=== PATIENT | female | born 1945 | race Caucasian/White ===

== ENCOUNTER 2019-09-09 04:45 | Inpatient (IN) ==
--- NOTE | 2019-08-28 09:18 | EKG Report ---
Test Performed on : 08/28/2019 09:01:31 AM Test Reason : PAT Blood Pressure : / mmHG Vent. Rate : 063 BPM Atrial Rate : 063 BPM P-R Int : 140 ms QRS Dur : 076 ms QT Int : 434 ms P-R-T Axes : 079 011 065 degrees QTc Int : 444 ms Normal sinus rhythm. Normal ECG No previous ECGs available Confirmed by Eliu KINGSTON, Estevan ([id number]) on 08/29/2019 8:30:33 AM
[2019-08-28 09:26] LABS: URINE SOURCE CLEAN CATCH
[2019-08-28 09:40] LABS: BASO# 0.02 X1000 (0.0-0.2); BASO% 0.3 % (0.0-0.8); EOS# 0.15 X1000 (0.0-0.7); EOS% 2.4 % (0.0-10.0); HEMATOCRIT 41.8 % (37.0-47.0); HEMOGLOBIN 13.3 g/dL (12.0-16.0); LYMPH# 1.89 X1000 (1.2-3.4); LYMPH% 29.6 % (20.5-51.1); MCH 29.8 PG (27-31); MCHC 31.8 g/dL (33-37); MCV 93.7 FL (81-99); MONO# 0.51 X1000 (0.11-0.59); MPV 9.6 FL (7.4-10.4); NEUT# 3.81 X1000 (1.4-6.5); NEUT% 59.7 % (42.2-75.2); PLT 196 X1000 (130-400); RBC 4.46 XMIL (4.2-5.4); RDW 12.8 % (11.5-14.5); WBC 6.38 X1000 (4.8-10.8)
[2019-08-28 09:46] LABS: INR 0.97
[2019-08-28 09:47] LABS: PTT 24.9 Seconds (22.3-41.8)
[2019-08-28 09:50] LABS: BILIRUBIN URINE NEGATIVE (NEGATIVE); BLOOD URINE TRACE (NEGATIVE); COLOR YELLOW; GLUCOSE URINE NEGATIVE (NEGATIVE); KETONE URINE NEGATIVE (NEGATIVE); NITRITE URINE NEGATIVE (NEGATIVE); PROTEIN URINE NEGATIVE (NEGATIVE); SP GRAVITY URINE 1.011; TURBIDITY URINE CLEAR (CLEAR); UROBILINOGEN URINE NORMAL (NORMAL)
[2019-08-28 09:59] LABS: HEMOGLOBIN A1C 5.6 % (4.8-6.0)
[2019-08-28 10:02] LABS: AGAP 11; ALBUMIN 4.5 g/dL (3.5-5.0); BUN 14 mg/dL (8-22); CALCIUM 9.2 mg/dL (8.8-10.2); CHLORIDE 103 mmol/L (98-107); COSMO 281; CREATININE 0.8 mg/dL (0.5-0.9); ESTIMATED GFR > 60; GLUCOSE 94 mg/dL (70-104); LEUKOCYTES URINE SMALL (NEGATIVE); SODIUM 141 mmol/L (136-145); TCO2 27 mmol/L (25-35); UR EPITHELIAL CELLS <10 /HPF (<10); URINE BACTERIA NEGATIVE /HPF; URINE RBC <10 /HPF (<10); URINE WBC <10 /HPF (<10)
[2019-09-09] MEDS ORDERED: PEPCID ONE (11:49)
[2019-09-09] MEDS ORDERED: COLACE ONE (11:49)
[2019-09-09] MEDS ORDERED: REGLAN ONE (11:49)
[2019-09-09] MEDS ORDERED: LR 1,000 ML ONE (11:50)
[2019-09-09] MEDS ORDERED: CELEBREX ONE (11:50)
[2019-09-09] MEDS ORDERED: KEFZOL 1 GM/D5W 1 GM/50 ML IVPB ONE (11:50)
[2019-09-09] MEDS ORDERED: LYRICA ONE (11:51)
[2019-09-09] MEDS ORDERED: DIPRIVAN 1% ONE ×2 (12:32→15:05)
[2019-09-09] MEDS ORDERED: XYLOCAINE-MPF 2% ONE ×2 (12:33→15:06)
[2019-09-09] MEDS ORDERED: DURAMORPH ONE (13:19)
[2019-09-09] MEDS ORDERED: TORADOL ONE (13:19)
[2019-09-09] MEDS ORDERED: MARCAINE 0.25% PF ONE (13:19)
[2019-09-09] MEDS ORDERED: SODIUM CHLORIDE 0.9% ONE (13:20)
[2019-09-09] MEDS ORDERED: CYKLOKAPRON 1,000 MG/NS 1,000 MG/100 ML IVPB ONE (13:20)
[2019-09-09] MEDS ORDERED: EXPAREL 1.3% ONE ×2 (13:20→13:21)
[2019-09-09] MEDS ORDERED: NEOSPORIN G.U. IRRIGANT ONE (13:21)
[2019-09-09] MEDS ORDERED: FENTANYL ONE (13:43)
[2019-09-09] MEDS ORDERED: ZOFRAN ONE (15:27)
[2019-09-09] MEDS ORDERED: DECADRON ONE (15:27)
[2019-09-09 15:51] LABS: URINE SOURCE CATH
[2019-09-09] MEDS ORDERED: PHENERGAN ONE (16:47)
[2019-09-09] MEDS ORDERED: NS 1,000 ML ONE (17:37)
[2019-09-09] MEDS ORDERED: MILK OF MAGNESIA PO PRN (17:50)
[2019-09-09] MEDS ORDERED: OXY IR PO PRN ×2 (18:00)
[2019-09-09] MEDS ORDERED: ZOFRAN ODT PO PRN (18:00)
[2019-09-09] MEDS ORDERED: NS 1,000 ML IV SCH (18:00)
[2019-09-09] MEDS ORDERED: ZOFRAN IV PRN (18:00)
[2019-09-09] MEDS ORDERED: MORPHINE IV PRN ×3 (18:30)
[2019-09-09] MEDS: ULTRAM PO SCH (18:59)
[2019-09-09] MEDS: TYLENOL PO SCH (18:59)
[2019-09-09 19:05] LABS: BILIRUBIN URINE NEGATIVE (NEGATIVE); BLOOD URINE NEGATIVE (NEGATIVE); COLOR ORANGE; GLUCOSE URINE NEGATIVE (NEGATIVE); KETONE URINE NEGATIVE (NEGATIVE); LEUKOCYTES URINE NEGATIVE (NEGATIVE); NITRITE URINE NEGATIVE (NEGATIVE); PH URINE 5.5; PROTEIN URINE NEGATIVE (NEGATIVE); TURBIDITY URINE TURBID (CLEAR); UR EPITHELIAL CELLS <10 /HPF (<10); URINE BACTERIA NEGATIVE /HPF; URINE RBC <10 /HPF (<10); URINE WBC <10 /HPF (<10); UROBILINOGEN URINE NORMAL (NORMAL)
[2019-09-09] MEDS ORDERED: CYKLOKAPRON 1,000 MG in NS 100 ML IV ONE (20:20)
[2019-09-09] MEDS ORDERED: WELCHOL PO SCH (21:00)
[2019-09-09] MEDS ORDERED: ZEBETA PO SCH (21:00)
[2019-09-09] MEDS ORDERED: VITAMIN B-12 PO SCH (21:00)
[2019-09-09] MEDS ORDERED: PRAVACHOL PO SCH (21:00)
--- NOTE | 2019-09-09 21:44 | OPERATIVE NOTE ---
PROCEDURE DATE: 09/09/2019 PREOPERATIVE DIAGNOSIS: Right hip degenerative joint disease. POSTOPERATIVE DIAGNOSIS: Right hip degenerative joint disease. PROCEDURE: Right anterior total hip arthroplasty using [facility] size 5 standard offset stem with a -4 neck length, 36 mm head, a 52 mm hemispherical shell with two 6.5 cancellous screws of 35 mm and 20 mm and a 36 mm inside diameter acetabular liner. ANESTHESIA: Spinal. SURGEON: Peter Fam MD. CLARIFIER OPERATOR HELPER: RIRI Poole. She was present throughout the case. Her assistance was critical for decision making and for successful completion of case. BLOOD LOSS: Minimal. DESCRIPTION OF PROCEDURE: Patient was brought to the operative suite and placed in the supine position. After successful administration of spinal anesthesia, patient was placed on the OSI table in the usual position for right hip. The right hip was then prepped and draped in usual sterile fashion. A longitudinal incision was made beginning 3 cm distal and 3 cm lateral to the anterior superior iliac spine, extending distally and slightly laterally 8 cm, dissected sharply through skin and subcutaneous tissue down to the tensor fascia. The tensor fascia was incised and dissected bluntly down to deep tensor fascia. Deep tensor fascia was incised and circumflex vessels were electrocauterized, exposing the anterior capsule. T capsulotomy was performed exposing the anterior neck. The anterior neck cut was made with oscillating saw. The femoral head was removed with a power corkscrew. The labrum was resected. There was an osteophyte anteriorly that was resected. The acetabulum was then serially reamed to 52 mm. The 52 mm cup was then driven in place in the proper amount of inclination and anteversion and two 6.5 cancellous screws were placed 35 mm superiorly and 20 mm posterior superiorly and then the 52 mm acetabular liner was then locked into place. Attention was then directed to the femur. It was externally rotated, extended, adducted, and elevated out of the wound with the hook on the OSI bed. The lateral neck was rongeured. The canal was serially broached to a size 5. A size 5 standard offset -4 neck length was trialed and found to be excellent. Leg length fit and filled the stem and offset. The trial was then removed. The definitive stem was seated onto the femur and then the ceramic head -4 neck length was seated onto the Guillermo taper and the hip was again reduced. It was again found to be in excellent position. The hip was copiously infiltrated with Exparel, including the posterior capsule, anterior capsule, anterior musculature, and subcutaneous tissue. The anterior capsule was repaired with 0 V-Loc. The hip was copiously irrigated with normal saline containing irrigant and Vashe irrigation and then the tensor fascia was closed with 0 V-Loc. Skin edge approximated with 2-0 Vicryl. Skin was closed with 4-0 Monocryl and Prineo dressing. The patient tolerated the procedure well without complications. At the end of the procedure all counts were correct x2. The patient was transferred to the recovery room in stable condition. cc: Peter Fam MD
[2019-09-09] MEDS: KEFZOL 1 GM/D5W 1 GM/50 ML IVPB IV SCH (23:02)
[2019-09-10] MEDS: CALTRATE 600 + D PO SCH ×2 (00:01→09:57)
[2019-09-10] MEDS: COLACE PO SCH ×2 (00:02→09:58)
[2019-09-10] MEDS: ULTRAM PO SCH ×2 (00:32→06:04)
[2019-09-10] MEDS: LYRICA PO SCH ×2 (01:36→09:57)
[2019-09-10] MEDS: TYLENOL PO SCH ×2 (01:37→06:06)
[2019-09-10] MEDS: PERIDEX MT SCH ×2 (01:37→09:58)
[2019-09-10] MEDS ORDERED: XARELTO PO SCH (06:00)
[2019-09-10] MEDS: KEFZOL 1 GM/D5W 1 GM/50 ML IVPB IV SCH (06:05)
[2019-09-10] MEDS ORDERED: SYNTHROID PO SCH (07:00)
[2019-09-10 07:23] LABS: AGAP 13; BUN 13 mg/dL (8-22); CHLORIDE 105 mmol/L (98-107); COSMO 283; CREATININE 0.6 mg/dL (0.5-0.9); ESTIMATED GFR > 60; GLUCOSE 124 mg/dL (70-104); POTASSIUM 4.1 mmol/L (3.5-5.1); SODIUM 141 mmol/L (136-145); TCO2 23 mmol/L (25-35)
[2019-09-10] MEDS ORDERED: SALINE LOCK IV FLUID XX ONE (07:44)
[2019-09-10] MEDS ORDERED: ZYRTEC PO SCH (09:00)
[2019-09-10] MEDS ORDERED: PEPCID PO SCH (09:00)
[2019-09-10] MEDS ORDERED: CARDIZEM CD PO SCH (09:00)
[2019-09-10] MEDS ORDERED: DECADRON IV ONE (09:00)
[2019-09-10] MEDS ORDERED: WELCHOL PO SCH (12:00)
[2019-09-10 12:09] VITALS: BP 175/82
[2019-09-10] MEDS ORDERED: ZEBETA PO SCH (17:00)
[2019-09-10] MEDS ORDERED: VITAMIN B-12 PO SCH (21:00)
--- NOTE | 2019-09-11 10:35 | DISCHARGE SUMMARY ---
ADMISSION DATE: 09/09/2019 DISCHARGE DATE: 09/10/2019 DISCHARGE DIAGNOSIS: Right hip degenerative joint disease status post right anterior total hip arthroplasty. DISCHARGE MEDICATIONS: See discharge medication list. DISPOSITION: The patient discharged home with home health physical therapy. Instructed to return for any signs or symptoms of infection or deep venous thrombosis. Instructed to return to see Dr. Fam next . HOSPITAL COURSE: On the day of admission, patient underwent a right anterior total hip arthroplasty. Her postoperative course was unremarkable. At discharge she is afebrile tolerating a regular diet, ambulating well with physical therapy. Her wound is clean, dry, intact without sign of infection. She is discharged home in stable condition with instructions to follow up as described above. cc: Peter Fam MD
== END 2019-09-10 14:27 | disposition home or self-care (01) | DRG 470 ==
LOC: SURHOLD 04:45 → 4N 13:59
PROVIDERS: ADMIT Orthopaedic Surgery; ATTEND Orthopaedic Surgery

== ENCOUNTER 2019-10-29 20:22 | Observation (INO) ==
[2019-10-29] MEDS ORDERED: ANTIVERT PO ONE (21:04)
[2019-10-29] MEDS ORDERED: ZOFRAN IV ONE (21:06)
[2019-10-29 21:12] LABS: BASO# 0.02 X1000 (0.0-0.2); BASO% 0.2 % (0.0-0.8); EOS# 0.03 X1000 (0.0-0.7); EOS% 0.3 % (0.0-10.0); HEMATOCRIT 37.8 % (37.0-47.0); HEMOGLOBIN 12.2 g/dL (12.0-16.0); IMM GRAN# 0.06 X1000 (0.0-0.04); IMM GRAN% 0.6 % (0.0-0.5); LYMPH# 0.96 X1000 (1.2-3.4); LYMPH% 9.8 % (20.5-51.1); MCH 29.1 PG (27-31); MCHC 32.3 g/dL (33-37); MCV 90.2 FL (81-99); MONO# 0.41 X1000 (0.11-0.59); MONO% 4.2 % (1.7-9.3); MPV 9.8 FL (7.4-10.4); NEUT# 8.36 X1000 (1.4-6.5); NEUT% 84.9 % (42.2-75.2); PLT 196 X1000 (130-400); RBC 4.19 XMIL (4.2-5.4); RDW 12.8 % (11.5-14.5); WBC 9.84 X1000 (4.8-10.8)
[2019-10-29 21:20] LABS: URINE SOURCE CLEAN CATCH
[2019-10-29 21:23] LABS: BILIRUBIN URINE NEGATIVE (NEGATIVE); BLOOD URINE NEGATIVE (NEGATIVE); COLOR YELLOW; GLUCOSE URINE NEGATIVE (NEGATIVE); KETONE URINE 40 mg/dL (NEGATIVE); LEUKOCYTES URINE NEGATIVE (NEGATIVE); NITRITE URINE NEGATIVE (NEGATIVE); PROTEIN URINE NEGATIVE (NEGATIVE); SP GRAVITY URINE 1.011; TURBIDITY URINE HAZY (CLEAR); UROBILINOGEN URINE NORMAL (NORMAL)
[2019-10-29 21:25] LABS: UR EPITHELIAL CELLS <10 /HPF (<10); URINE BACTERIA NEGATIVE /HPF; URINE RBC <10 /HPF (<10); URINE WBC <10 /HPF (<10)
[2019-10-29 21:34] LABS: AGAP 14; ALB/GLOB RATIO 1.4; ALBUMIN 3.7 g/dL (3.5-5.0); ALKALINE PHOSPHATASE 105 U/L (32-104); BUN 11 mg/dL (8-22); CALCIUM 9.2 mg/dL (8.8-10.2); CHLORIDE 104 mmol/L (98-107); COSMO 283; CREATININE 0.7 mg/dL (0.5-0.9); ESTIMATED GFR > 60; GLUCOSE 177 mg/dL (70-104); GOT 19 U/L (10-30); GPT 12 U/L (10-36); POTASSIUM 3.9 mmol/L (3.5-5.1); SODIUM 140 mmol/L (136-145); TCO2 22 mmol/L (25-35); TOTAL BILIRUBIN 0.33 mg/dL (0.20-1.00); TOTAL PROTEIN 6.4 g/dL (6.3-8.3)
--- NOTE | 2019-10-29 21:38 | Diag Imaging Result Doc PS360 ---
EXAM: CT HEAD W/O CONTRAST HISTORY: dizziness TECHNIQUE: CT head without intravenous contrast COMPARISON: None. FINDINGS: No parenchymal hemorrhage. No epidural or subdural hematoma. No subarachnoid hemorrhage. There are mild microvascular ischemic changes. No mass identified on this noncontrasted exam. No hydrocephalus. The left sphenoid sinus is nearly completely opacified. IMPRESSION: 1.No hemorrhage 2.Mild chronic microvascular ischemic changes 3.Left sphenoid sinusitis This exam was performed using automated exposure control, adjustment of mA or kV according to patient size, and/or use of iterative reconstruction technique. Electronically signed by Rigoberto Stevens 10/29/2019 9:35 PM
--- NOTE | 2019-10-30 00:42 | PROVIDER DOCUMENTATION ---
This chart was entered by Barbie Pimentel Scribe, acting as scribe for Hans Rodarte MD. HPI-Abdominal Pain/GI Problem - General Chief Complaint: Nausea/Vomiting Stated Complaint: nausea/vomiting Time Seen by Provider: 10/29/19 20:53 Source: patient, family Allergies/Adverse Reactions: Patient Allergies Allergy/AdvReac Type Severity Reaction Status Date / Time Iodinated Contrast Media Allergy SWELLING Verified 10/30/19 06:30 Sulfa (Sulfonamide AdvReac RASH Verified 08/27/19 11:17 Antibiotics) Home Medications: Home Medication List Medication Instructions Recorded Confirmed Last Taken Type Colesevelam [Welchol] 625 mg PO DAILY 08/16/14 10/29/19 09/08/19 21:00 History Diltiazem HCl [Cartia Xt] 360 mg PO DAILY 08/16/14 10/29/19 09/08/19 06:00 History Levothyroxine [Synthroid] 75 mcg PO DAILY 08/16/14 10/29/19 09/08/19 04:00 History Pravastatin Sodium 80 mg PO QHS 01/01/16 10/29/19 09/08/19 21:00 History Bisoprolol [Zebeta] 5 mg PO QPM 08/27/19 10/29/19 09/08/19 17:00 History Calcium/D3/Mag Ox/[employer] Supervisor/Christian/Zn 2 dose PO ACS 08/27/19 10/30/19 09/08/19 21:00 History [Caltrate+D3 Plus Mineral Minis] Cetirizine HCl [Zyrtec] 10 mg PO DAILY 08/27/19 10/29/19 09/08/19 09:00 History Cyanocobalamin (Vitamin B-12) 1,000 mcg PO DAILY 08/27/19 10/29/19 09/08/19 21:00 History [B-12] Calcium Carbonate/Vit D3 [Caltrate 1 ea PO HS 10/30/19 10/30/19 Unknown History 600 + D] Ergocalciferol (Vitamin D2) 50,000 units PO DIRECTED 10/30/19 10/30/19 Unknown History [Vitamin D] - History of Present Illness-ABD Nature of Presenting Problems: pt is a 74 yr old female presenting with 1 day complaint of nausea, vomiting diarrhea and epigastric chest pain, pt reports vomited x 3 today, diarrhea x 1. pt reports she took Metamucil to improve diarrhea without relief, pt denies any other prearrival tx. pt also admits weakness/severe dizziness. Abdominal Pain Onset Location: reports: epigastric Pain Radiation: reports: no radiation Quality of Pain: reports: aching Severity in ED: reports: moderate Onset/Duration: reports: this afternoon Timing: reports: still present Activities at Onset: reports: light activity Exposure to sick contacts?: No Modifying Factors: improves with: other medication (metamucil without relief) Associated Symptoms: reports: diarrhea, dizziness, fatigue, nausea, vomiting, other (Pt notes some blurred vision for several days with dizziness). denies: chest pain, fever/chills, genitourinary problems, shortness of breath Last BM: this evening Dark Stools Present?: reports: none noticed Rectal Bleeding: reports: none # of Diarrhea Episodes: 1 Rectal Pain: reports: none # of Vomiting Episodes: 3 Emesis Description: reports: clear Bruising or Bleeding Gums?: No Similar Symptoms Previously?: No Recently seen or treated by another doctor?: No Review of Systems - Adult - REVIEW OF SYSTEMS - ADULT Constitutional: reports: fatique. denies: chills, fever Eyes: reports: no symptoms reported Ears, Nose, Mouth & Throat: reports: no symptoms reported Cardiovascular: reports: chest pain (epigastric), palpitations. denies: syncope Respiratory: denies: cough, dyspnea on exertion, wheezing Gastrointestinal: reports: abdominal pain, diarrhea, nausea, vomiting Genitourinary: denies: dysuria, frequency Musculoskeletal: reports: no symptoms reported Integumentary: reports: no symptoms reported Neurological: reports: dizziness/vertigo. denies: headache/migraines, syncope Psychiatric: reports: no symptoms reported Endocrine: reports: no symptoms reported Hematologic/Lymphatic: reports: no symptoms reported Allergic/Immunologic: reports: no symptoms reported All Other Systems: Reviewed and Negative Past History - Adult - PAST MEDICAL HISTORY-ADULT Review of Records: reports: Old Records Reviewed, Nursing Assessment Review, Medications Reviewed, Social history reviewed & non-contributory. Major Childhood Illnesses: reports: denies history Cardiovascular: reports: HTN, heart valve problem (MVP) Respiratory: reports: denies history Gastrointestinal: reports: other (chronic diarrhea) Obstetrical/Gynecological: reports: denies history Genitourinary: reports: denies history Musculoskeletal: reports: intervertebral disc disease (neck and lower back) Neurological: reports: denies history Endocrine/Immune: reports: thyroid disorder Other Conditions: reports: denies history - PRIOR SURGERIES/PROCEDURES Surgical/Procedure History: reports: cholecystectomy, hysterectomy, tonsillectomy, back/neck (lumbar) - IMMUNIZATION STATUS Childhood Immunizations: See Nurse Assessment Flu Vaccine: See Nurse Assessment - FAMILY HISTORY Family History: reviewed, not pertinent - SOCIAL HISTORY Smoking: non-smoker Substance Use: denies Living Situation: family Physical Exam-General - PHYSICAL EXAM-ADULT Initial Vital Signs Reviewed: Yes - CONSTITUTIONAL General Appearance: appears well, alert, mild distress - EYES Eyes: PERRL/EOMI - HEAD, EARS, NOSE, MOUTH & THROAT HENMT: normocephalic/atraumatic, moist mucous membranes, normal ENT inspection - NECK Neck: non-tender, full range of motion, supple, normal inspection - RESPIRATORY Respiratory: chest non-tender, lungs clear, normal breath sounds, no pleuratic chest pain, no respiratory distress, no accessory muscle use - CARDIOVASCULAR Cardiovascular: normal peripheral pulses, regular rate, rhythm, no edema, no gallop, no JVD - GASTROINTESTINAL (ABDOMEN) Abdominal Exam: normal bowel sounds, soft, tenderness (minimal epigastric tenderness) - LYMPHATIC Lymphatic: no adenopathy - MUSCULOSKELETAL Back Exam: normal inspection, no CVA tenderness, no vertebral tenderness Extremity: normal range of motion, non-tender, normal gait, normal inspection - SKIN Integumentary: normal color, normal turgor, warm/dry - NEUROLOGIC Neurologic: grossly normal, no motor/sensory deficits - PSYCHIATRIC Psych/Mental Status: normal mood/affect, normal thought content, normal thought process, oriented x 3 Progress - PLAN OF CARE/RESULTS Progress/Plan/Lab Results: Vital Signs - 8 hr 10/29/19 20:33 Temperature 97.5 F L Pulse Rate 68 Respiratory Rate 19 Blood Pressure 160/80 O2 Sat by Pulse Oximetry 100 Laboratory Results - last 24 hr 10/29/19 20:38 POC Glucose 157 H Orders Category Date Time Status CT HEAD W/O CONTRAST [CT] Stat Exams 10/29/19 21:03 Ordered CBC WITH ELECTRONIC DIFF [HEME] Stat Lab 10/29/19 20:39 Results COMPREHENSIVE METABOLIC PANEL [CHEM] Stat Lab 10/29/19 20:39 Received TROPONIN T HIGH SENSITIVITY Stat Lab 10/29/19 21:04 Uncollected UA [URINALYSIS W/POSS RFLX CULT] [URINALYSIS] Stat Lab 10/29/19 20:55 Uncollected Meclizine [Antivert] Med 10/29/19 21:04 Discontinued 25 mg PO NOW ONE Ondansetron [Zofran] Med 10/29/19 21:06 Discontinued 4 mg IV NOW ONE EKG [EKG] Stat Ther 10/29/19 21:03 Ordered At recheck, pt notes that she still cannot sit up due to severe vertigo. Result Diagrams: 10/29/19 20:39 10/29/19 20:39 - EKG 1 Time of EKG reading by physician:: 22:25 EKG Read and Signed by:: Hans Rodarte EKG Interpretation (*Must complete 3 of following elements*): Abnormal (non specific st and t wave abnormality) Rate: 60 Rhythm: nsr [place]: normal QRS: normal HI Interval: normal - CT/MRI 1 CT Study: Head Impression: Abnormal ( Signed EXAM: CT HEAD W/O CONTRAST HISTORY: dizziness TECHNIQUE: CT head without intravenous contrast COMPARISON: None. FINDINGS: No parenchymal hemorrhage. No epidural or subdural hematoma. No subarachnoid hemorrhage. There are mild microvascular ischemic changes. No mass identified on this noncontrasted exam. No hydrocephalus. The left sphenoid sinus is nearly completely opacified. IMPRESSION: 1.No hemorrhage 2.Mild chronic microvascular ischemic changes 3.Left sphenoid sinusitis This exam was performed using automated exposure control, adjustment of mA or kV according to patient size, and/or use of iterative reconstruction technique. Electronically signed by Rigoberto Stevens 10/29/2019 9:35 PM 10/29/192134 Interpreting Physician: Rigoberto Stevens MD Dictated Date/Time: 10/29/192133 cc: Hans Rodarte MD; Scooby Chiang Jr, MD) Comparison with other Films: no prior study - CONSULTS/PCP/HOSPITALIST Notification #1 *Consult/PCP/Hospitalist*: Dr Solo Time Discussed: 00:31 Consult Disposition: Will see in ED, Admit Departure - Departure Date of Disposition Decision: 10/29/19 Time of Disposition Decision: 23:40 DIAGNOSIS: Vertigo, Chest pain Disposition: ADMITTED INPATIENT 09 Certified Medical Emergency: Emergent Condition: Fair - Critical Care Note This patient required my direct & personal management of CC.: No Attestation - Physician/ KALPESH Attestation Patient care was provided by Advanced Practice Provider:: No The physician spent face to face time with patient:: Yes Advanced Practice Provider documentation review:: Supervising physician onsite and consulted in the evaluation and care of this patient. The physician did have a face to face encounter with the patient. This chart was documented by the indicated scribe, (Barbie Pimentel, Vladislav) and accurately reflects the services I performed and decisions made by me, Hans Rodarte MD, as attested by the provider's signature.
[2019-10-30] MEDS ORDERED: ZOFRAN IV PRN (00:56)
[2019-10-30] MEDS ORDERED: ANTIVERT PO PRN (00:56)
[2019-10-30] MEDS ORDERED: LEVAQUIN PO ONE (00:58)
[2019-10-30 02:01] LABS: HEMOGLOBIN A1C 5.3 % (4.8-6.0)
[2019-10-30] MEDS: NS 1,000 ML IV SCH ×2 (02:07→22:02)
[2019-10-30] MEDS: LOVENOX SUBQ SCH (03:19)
--- NOTE | 2019-10-30 07:46 | HISTORY AND PHYSICAL ---
CHIEF COMPLAINT: Nausea, vomiting. HISTORY OF PRESENT ILLNESS: This is a 74-year-old female who presents to the emergency room with one day complaint of nausea, vomiting and diarrhea as well as epigastric chest pain and generalized weakness as well as severe dizziness. She apparently had 3 episodes of vomiting, 1 episode of diarrhea but her dizziness continued to worsen. She has had some blurred vision and dizziness for around 2-3 days. The nausea and vomiting started today. She sees Dr. Chiang outpatient. She decided to come on in to the emergency room. She does state that she has had problems with chronic diarrhea.OTHER PAST MEDICAL HISTORY INCLUDES Hypertension, Hyperlipidemia, Hypothyroidism, Osteoarthritis, Osteoporosis, Scoliosis and Stomach ulcers. Her workup in the emergency room other than having some hyperglycemia on her labs was mostly benign. Her CT scan did show left sphenoid sinus nearly completely opacified as well as mild chronic microvascular disease. It is possible that her vertigo is stemming from her sinusitis. She will be admitted for further evaluation and treatment. PAST MEDICAL HISTORY: See HPI. PREVIOUS SURGICAL HISTORY: 1. Cholecystectomy. 2. Hysterectomy. 3. Tonsillectomy. 4. Right total hip. 5. Neck surgery. SOCIAL HISTORY: No tobacco, alcohol or illicit drugs. ALLERGIES: Sulfa antibiotics. HOME MEDICATIONS: 1. Calcium carbonate 600 plus D one p.o. at bedtime. 2. Vitamin D2 50,000 units as directed. 3. Bisoprolol 5 mg p.o. q.p.m. 4. Calcitrate plus D3 two doses p.o. a.c.s. 5. Zyrtec 10 mg p.o. daily. 6. Welchol 625 mg p.o. daily. 7. Vitamin B12 1000 mcg p.o. daily. 8. Diltiazem HCL 360 mg p.o. daily. 9. Levothyroxine 75 mcg p.o. daily. 10.Pravastatin 80 mg p.o. at bedtime. REVIEW OF SYSTEMS: Fourteen point review of systems conducted with the patient. Pertinent positives listed above in the HPI. All other systems reviewed and found to be negative. PHYSICAL EXAMINATION: VITAL SIGNS: Temperature 98 degrees, pulse 63, respirations 18, blood pressure 152/62, oxygen saturation 98% on room air. GENERAL: 74-year-old female lying in the ER stretcher. She is alert and oriented x3. She is in no acute distress. HEENT: Head is atraumatic, normocephalic. Pupils equal, round and reactive to light. Extraocular eye movements intact. Sclerae anicteric. Conjunctivae pink. Oral mucosa is moist. NECK: Supple. No JVD. No thyromegaly. Trachea is midline. No cervical lymphadenopathy. CARDIAC: S1, S2 appreciated. No murmurs, gallops, rubs. LUNGS: Clear to auscultation bilaterally. No rhonchi, wheezes, rubs. Symmetric rise and fall of respirations. ABDOMEN: Soft, nondistended, mild epigastric tenderness to palpation. EXTREMITIES: No cyanosis, clubbing or edema. 2+ pedal pulses. GENITOURINARY: No bladder distention. Patient voids. NEUROLOGICAL: Alert and oriented x3. Cranial nerves 2-12 grossly intact. However, patient is still having severe vertigo and cannot sit unaided. Gait could not be tested. DIAGNOSTIC DATA: CT of the head shows left sphenoid sinusitis. Mild chronic microvascular ischemic changes. No hemorrhage. LABORATORY DATA: WBC 9.84, hemoglobin 12.2, hematocrit 37.8, platelet count 196,000. Sodium 140, potassium 3.9, chloride 104, carbon dioxide 22, BUN 11, creatinine 0.7, glucose 177. Urine unremarkable. ASSESSMENT AND PLAN: 1. Vertigo. 2. Rule out TIA versus CVA. 3. Left sphenoid sinusitis. 4. Hypertension. 5. Hyperlipidemia. PLAN: Admit patient to the medical floor. MRI and echo tomorrow morning. Continue home medications. We will treat sinusitis with Levaquin. Continue meclizine and Zofran as needed for nausea, vomiting and vertigo. She will be followed up this morning by her primary care provider or someone in his call group. Dictated by RIRI Aguilera for Juan Alberto Nevarez MD cc: RIRI Aguilera MD Roger H. Moss Jr, MD MTDD
--- NOTE | 2019-10-30 08:48 | EKG Report ---
Test Performed on : 10/29/2019 10:25:52 PM Test Reason : dizziness Blood Pressure : / mmHG Vent. Rate : 060 BPM Atrial Rate : 060 BPM P-R Int : 142 ms QRS Dur : 072 ms QT Int : 466 ms P-R-T Axes : 061 -21 026 degrees QTc Int : 466 ms Normal sinus rhythm. Nonspecific ST abnormality Abnormal ECG When compared with ECG of 28-AUG-2019 09:01, Nonspecific T wave abnormality now evident in Inferior leads Unconfirmed Result
[2019-10-30] MEDS ORDERED: CALTRATE 600 + D PO SCH ×3 (09:00→21:00)
--- NOTE | 2019-10-30 09:19 | PROGRESS NOTE ---
DATE: 10/30/2019 SUBJECTIVE: The patient presented with dizziness, nausea, vomiting, and diarrhea. She also has a sphenoid sinusitis. She has had this dizziness before, and takes meclizine on occasion for it. She is feeling better now. CT scan of the head showed the sphenoid sinusitis, and she has been placed on antibiotics. An MRI scan has been ordered just to make sure there is nothing else going on. She says this is the worst case of dizziness she has ever had. However, this morning she feels better, still a little lightheaded, wants to try to get up a little bit, and will do this with Physical Therapy. Her blood pressure is up still a little bit. OBJECTIVE: Vital Signs: Blood pressure 157/60, respirations 18, pulse 69, temperature 98.4 degrees. HEENT: She is normocephalic. EOMS intact. PERRLA. Throat clear. Lungs: Clear to auscultation and percussion, without rhonchi, rales, or wheezes. Heart: Regular rate and rhythm without murmurs, gallops, friction rubs. Abdomen: Soft. Active bowel sounds. No organomegaly or tenderness. Neurological: Cranial nerves II through XII are intact grossly. Sensory and motor intact. She does get dizzy when she moves her head back and forth. ASSESSMENT: Most likely, this is just benign postural vertigo and a sinusitis, but will rule out any central nervous system effects with an MRI scan. PLAN: Continue her medications. I will add hydrochlorothiazide 12.5 mg daily since her blood pressure is up a little bit, and it might help her vertigo. We will see what the MRI scan shows later today. Continue care. cc: Scooby Chiang Jr, MD
[2019-10-30] MEDS: SYNTHROID PO SCH (09:22)
[2019-10-30] MEDS: CARDIZEM CD PO SCH (09:22)
[2019-10-30] MEDS: CALTRATE 600 + D PO SCH (09:23)
[2019-10-30] MEDS: VITAMIN B-12 PO SCH ×2 (09:23→09:33)
[2019-10-30] MEDS: HYDROCHLOROTHIAZIDE PO SCH (09:24)
[2019-10-30] MEDS: WELCHOL PO SCH ×2 (09:24→09:34)
[2019-10-30] MEDS: ZYRTEC PO SCH (09:24)
[2019-10-30 09:31] LABS: URINE SOURCE CLEAN CATCH
[2019-10-30 09:42] LABS: BILIRUBIN URINE NEGATIVE (NEGATIVE); BLOOD URINE LARGE (NEGATIVE); COLOR STRAW; GLUCOSE URINE NEGATIVE (NEGATIVE); KETONE URINE 10 mg/dL (NEGATIVE); LEUKOCYTES URINE NEGATIVE (NEGATIVE); NITRITE URINE NEGATIVE (NEGATIVE); PROTEIN URINE TRACE mg/dL (NEGATIVE); SP GRAVITY URINE 1.014; TURBIDITY URINE HAZY (CLEAR); UROBILINOGEN URINE NORMAL (NORMAL)
[2019-10-30 09:44] LABS: UR EPITHELIAL CELLS <10 /HPF (<10); URINE BACTERIA NEGATIVE /HPF; URINE RBC TNTC /HPF (<10); URINE WBC <10 /HPF (<10)
--- NOTE | 2019-10-30 10:53 | Diag Imaging Result Doc PS360 ---
EXAM: MRI BRAIN W/WO CONTRAST INDICATION: stroke COMPARISON: CT head dated 10/29/2019. No prior MRI brain is available for comparison. FINDINGS: There is no evidence of acute infarct. There is patchy T2/FLAIR hyperintensity in the periventricular and subcortical white matter suggesting moderate microangiopathy. There is no discrete intracranial mass, mass effect, or intracranial hemorrhage. There is no evidence of abnormal intracranial enhancement. There is chronic left sphenoid sinusitis that can also be seen on CT. Surrounding soft tissues and bony structures are essentially unremarkable, otherwise. IMPRESSION: Suggestion of moderate white matter microangiopathy. No evidence of acute intracranial pathology. Electronically signed by Geo Lopez 10/30/2019 10:51 AM
[2019-10-30] MEDS ORDERED: WELCHOL PO SCH (12:00)
--- NOTE | 2019-10-30 13:42 | ECHO REPORT ---
ORDER DATE: 10/30/2019 INTERPRETING PHYSICIAN: Dr. Da Ny. ECHOCARDIOGRAPHIC MEASUREMENTS: 1. Interventricular septum: 0.9 cm. 2. Left ventricular posterior wall: 1.0 cm. 3. Diastolic diameter: 4.1 cm. 4. Left atrium: 4.1 cm. 5. Aorta: 2.7 cm. SUMMARY OF THE 2-DIMENSIONAL IMAGIN. Normal left ventricular cavity size. 2. Estimated ejection fraction of 70%. 3. There is grade 2 diastolic dysfunction. 4. There is left atrial enlargement. 5. Aortic valve leaflets are trileaflet. 6. Mitral valve was normal. 7. Tricuspid valve was normal. 8. Pulmonic valve was normal. 9. There was mild mitral regurgitation. 10. Mild tricuspid regurgitation. Peak velocity across the tricuspid valve was 2.7 m/sec. 11. Peak velocity across the aortic valve less than 2 m/sec. There is no aortic stenosis or regurgitation. 12. There is no pericardial effusion or obvious intracardiac mass or thrombus seen. cc: MD Venancio Saha CRNP Roger H. Moss Jr, MD
[2019-10-30] MEDS ORDERED: LEVAQUIN PO SCH (16:00)
[2019-10-30] MEDS ORDERED: ZEBETA PO SCH (21:00)
[2019-10-30] MEDS ORDERED: PRAVACHOL PO SCH (21:00)
[2019-10-30] MEDS ORDERED: VITAMIN B-12 PO SCH (21:00)
[2019-10-31] MEDS: LOVENOX SUBQ SCH (03:15)
[2019-10-31] MEDS: SYNTHROID PO SCH (06:08)
[2019-10-31 06:55] LABS: BASO# 0.02 X1000 (0.0-0.2); BASO% 0.3 % (0.0-0.8); EOS# 0.27 X1000 (0.0-0.7); EOS% 4.6 % (0.0-10.0); HEMATOCRIT 38.2 % (37.0-47.0); HEMOGLOBIN 11.7 g/dL (12.0-16.0); LYMPH# 1.36 X1000 (1.2-3.4); MCH 28.5 PG (27-31); MCHC 30.6 g/dL (33-37); MCV 93.2 FL (81-99); MONO% 8.5 % (1.7-9.3); MPV 9.8 FL (7.4-10.4); NEUT# 3.76 X1000 (1.4-6.5); NEUT% 63.6 % (42.2-75.2); PLT 191 X1000 (130-400); WBC 5.91 X1000 (4.8-10.8)
[2019-10-31 07:19] LABS: AGAP 10; BUN 11 mg/dL (8-22); CALCIUM 9.1 mg/dL (8.8-10.2); CHLORIDE 105 mmol/L (98-107); COSMO 282; CREATININE 0.8 mg/dL (0.5-0.9); ESTIMATED GFR > 60; GLUCOSE 93 mg/dL (70-104); POTASSIUM 3.9 mmol/L (3.5-5.1); SODIUM 142 mmol/L (136-145); TCO2 27 mmol/L (25-35)
[2019-10-31 08:19] VITALS: BP 143/61
[2019-10-31] MEDS: ZYRTEC PO SCH (08:45)
[2019-10-31] MEDS: HYDROCHLOROTHIAZIDE PO SCH (08:45)
[2019-10-31] MEDS: CARDIZEM CD PO SCH (08:45)
[2019-10-31] MEDS: CALTRATE 600 + D PO SCH (08:45)
--- NOTE | 2019-10-31 22:53 | DISCHARGE SUMMARY ---
ADMISSION DATE: 10/30/2019 DISCHARGE DATE: 10/31/2019 FINAL DIAGNOSES: 1. Benign postural vertigo. 2. Hematuria. 3. Hypertension. 4. Hyperlipidemia. 5. Chronic diarrhea. 6. Hemorrhoids. PRESENT ILLNESS: The patient is a 74-year-old who came in with complaint of nausea, vomiting and diarrhea. Her diarrhea is actually chronic and she takes medication for that. She had some dizziness for 2 or 3 days and said this was the worst dizziness she has ever had. She was describing that the room was spinning with her. She was put in, scans of her head were done to make sure there was nothing else going on and those were essentially normal. Her initial urinalysis was normal but the second one did show blood. She thinks that it was contamination from her diarrhea and her hemorrhoids, but we do have a culture pending. She has no dysuria and the first urinalysis was normal. We are going to hold off putting her on antibiotics, though the physician that admitted her for me did give her 1 antibiotic dose of Levaquin. She has already been on Zyrtec at home and had meclizine. She was given meclizine here and yesterday I added hydrochlorothiazide 12.5 mg daily to help with the dizziness and her blood pressure was up as well. We will continue with that medication. Today, she feels much better. She has been up and walking around. She wants to go home. OBJECTIVE: Blood pressure 143/61, respirations 16, pulse 56, temperature 98.6 degrees. HEENT: She is normocephalic. EOMS intact, PERRLA. Throat clear. Lungs: Clear to auscultation and percussion without rhonchi, rales, or wheezes. Heart: Regular rate and rhythm without murmurs, gallops, or friction rubs. Abdomen: Soft, active bowel sounds, no organomegaly or tenderness. Neurological: Intact grossly. She has no dizziness when she moves her head back and forth now. PLAN: We will discharge home with a new medication of meclizine. We will await her urine culture, but I think it is going to be either negative or a contaminant. cc: Scooby Chiang Jr, MD
[2019-11-01] MEDS ORDERED: VITAMIN D PO SCH ×2 (09:00)
== END 2019-10-31 11:34 | disposition home or self-care (01) ==
LOC: SUPCPDRO → ED 20:22 → 4N 10-30 01:39 → INTOOBSV 10-30 01:39 → SUATTDRO 10-30 01:39
PROVIDERS: ADMIT Emergency Medicine; ATTEND Emergency Medicine